=== PATIENT | female | born 1950 | race Caucasian/White ===

== ENCOUNTER → 2018-11-03 | Day surgery (SDC) | payer MEDICARE, OTHER ==
[~2018-11-03] MED LIST: CELEXA40 MG PO; CLONAZEPAM PO; DYAZIDE; FOLIC ACID1 MG PO; FUROSEMIDE 40 M40 M1 PO; IRON325 PO; KLOR-CON 1010 MEQ PO; LISINOPRIL10 MG PO; LOPRESSOR25 PO; MUPIROCIN22 GM TOP; NICOTINE TRANSD21 M1 TD; NORCO 5-325 TA1 EAC1 PO; PEPCID40 MG PO; PLAVIX 75 MG TA75 M1 PO; TRIAMTERENE-HC1 EAC3 PO; TYLENOL EXTRA500 MG PO; VITAMIN B-12500 MC5 PO; VITAMIN D5000 UNIT PO; WELLBUTRIN PO; XANAX 0.5 MG0.5 MG PO; ZOLOFT25 MG PO
--- NOTE | ~2018-11-03 | OP ---
[address] [address] OPERATIVE REPORT Name: JT POOLE Room: [facility]#: [id number] Admission: 11/03/18 Attend Phys: Ryan Gudino II Discharge: Date of : 54 Report #: [id number] THIS REPORT FOR: //name// CC: Ryan Skelton DATE OF SERVICE: 11/03/2018 PREOPERATIVE DIAGNOSIS: Left distal radius fracture with comminution. POSTOPERATIVE DIAGNOSIS: Left distal radius fracture with comminution. PROCEDURE PERFORMED: Open reduction and internal fixation of left distal radius fracture, greater than 3 parts. SURGEON: Ryan Gudino II, DO. DIRECTOR OF SCOUT WORK: MINDA Gannon. ANESTHESIA: Per operative record. ESTIMATED BLOOD LOSS: 20 mL. ANTIBIOTICS: Per operative record. DRAINS: None. COMPLICATIONS: None. CONDITION: The patient is stable to recovery room. IMPLANTS USED: Krystal distal radius plate with appropriate locking and nonlocking screws. DESCRIPTION OF PROCEDURE: The patient was taken to the operative suite and placed supine on the operative table and given appropriate anesthesia. The patient had a well-padded tourniquet applied to the upper extremity, which was inflated to 250 mmHg after Esmarch exsanguination for the duration of procedure. The arm was sterilely prepped and draped. Surgery began by a volar incision over the flexor carpi radialis tendon. This was carried down to the subcutaneous tissues. The tendon was then found and retracted radially. This was then bluntly carried out down to the pronator, which had been disrupted due to the fracture. This was reflected off of the volar aspect of the radius down to the watershed line at the distal portion of the radius. There was found to be a markedly comminuted with multiple fragments distal radius fracture. Utilizing C-arm fluoroscopy, a reduction was then performed [place] [address] OPERATIVE REPORT Name: JT POOLE JAYSON Room: [facility].#: [id number] Admission: 11/03/18 Attend Phys: Ryan Gudino II Discharge: Date of : 54 Report #: [id number] well as a dental pick to align the fragments into a near anatomic alignment. The fractures were then held utilizing K-wires through the radius styloid as well as the ulnar aspect. The plate was then visualized with C-arm fluoroscopy and shown to be appropriate size. This was then held with utilizing K wires and the sliding screw was then applied. Appropriate alignment was then verified in both AP and lateral directions and screw was then placed into the styloid to secure this piece. The ulnar fragment was utilized with [place] and reduction clamp to held in place. Screw was then placed from there and locked in appropriate fashion. Final piece in the middle portion of the joint was then held with reduction forceps and no was placed in this portion. C-arm was then utilized to verify appropriate anatomic alignment of the joint with reduction of its angles. She had an excellent anatomic reduction. The remaining screws were then applied in appropriate fashion and visualized at the completion to be in appropriate anatomic alignment. Irrigation was then performed of the wound, it was then closed utilizing a 2-0 Vicryl to reflect the pronator back over the plate. The subcuticular layer was then closed utilizing a 2-0 Vicryl and a running Monocryl stitch. Dermabond and sterile dressing and a splint were applied. The patient was transported to the recovery room in stable condition. Counts were correct throughout the procedure. By: [id number] Gudino II, DO /nt
[2018-11-03 13:10] LABS: HEMATOCRIT 37.7 % (37.0-47.0); HEMOGLOBIN 12.7 gm/dL (12.0-15.0); MCH 33.9 pg (26.0-34.0); MCHC 33.7 g/dL (28.0-37.0); MCV 100.4 fL (80.0-100.0); MPV 7.2 fl. (7.2-11.1); RBC 3.76 mil/uL (4.20-5.00); RDW-CV 13.3 % (10.5-14.5); WBC 5.1 thou/uL (4.0-11.0)
[2018-11-03 13:31] LABS: CALCIUM 9.5 mg/dL (8.5-10.1); CREATININE 0.9 mg/dL (0.6-1.3); POTASSIUM 3.9 mmol/L (3.5-5.1)
--- NOTE | 2018-11-03 16:28 | EKG ---
[place] [address] ELECTROCARDIOGRAM REPORT Name: JT POOLE Room: 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
== END | disposition home or self-care (01) ==
LOC: M.SUR 12:32
PROVIDERS: Orthopaedic Surgery
DX: S52.572A Other intraarticular fracture of lower end of left radius, initial encounter for closed fracture (principal); X58.XXXA Exposure to other specified factors, initial encounter; Y93.89 Activity, other specified; Y92.89 Other specified places as the place of occurrence of the external cause; Y99.8 Other external cause status; Z79.899 Other long term (current) drug therapy